=== PATIENT | male | born 1985 | race Caucasian/White ===

== ENCOUNTER 2019-01-22 20:51 | Emergency (ER) | payer OTHER ==
[~2019-01-22] VITALS: Ht 177.8 cm; Wt 83.0 kg
[2019-01-22 20:54] VITALS: BP 130/89
[2019-01-22] MEDS ORDERED: LIDOCAINE 1%, 10ML INFIL ONE (21:30)
[2019-01-22] MEDS ORDERED: LIDOCAINE-MPF 1%, 5ML ONE ×3 (21:36→22:46)
--- NOTE | 2019-01-22 22:20 | NUR ---
TECH AT BEDSIDE FOR IRRIGATION.
--- NOTE | 2019-01-22 22:27 | NUR ---
PA AT BEDSIDE, LIDO ADMINISTERED BY PA.
--- NOTE | 2019-01-22 22:56 | NUR ---
XRAY AT BEDSIDE.
[2019-01-22] MEDS ORDERED: NEOSPORIN OINT. PKT 1 PACKET ONE (23:15)
[2019-01-22] MEDS ORDERED: CEPHALEXIN 500 MG CAPSULE ONE (23:20)
--- NOTE | 2019-01-22 23:21 | NUR ---
MED ADMINISTERED PER ORDER.
--- NOTE | 2019-01-22 23:26 | NUR ---
TECH AT BEDSIDE FOR IRRIGATION AND SPLINTING.
[2019-01-22] MEDS ORDERED: CEPHALEXIN 500 MG CAPSULE PO ONE (23:30)
--- NOTE | 2019-01-22 23:49 | NUR ---
Patient/Caregiver given discharge instructions and they have confirmed that they understand the instructions. Patient ambulatory with steady gait.
== END 2019-01-22 23:50 | disposition home or self-care (01) ==
LOC: ED 22:29
DX: S61.213A Laceration without foreign body of left middle finger without damage to nail, initial encounter (principal); S61.412A Laceration without foreign body of left hand, initial encounter; S61.216A Laceration without foreign body of right little finger without damage to nail, initial encounter
CPT/HCPCS: 12042; 73130; 99285; J3490